=== PATIENT | female | born 1985 | race Caucasian/White ===

== ENCOUNTER 2021-08-15 15:35 | Observation (INO) ==
[2021-08-15] MEDS ORDERED: *HR* HYDROmorphone (PF) 1 MG/ML SYRINGE IVP PRN (18:21)
[2021-08-15] MEDS ORDERED: Ringers Solution, Lactated 1,000 ML IVC SCH (19:15)
[2021-08-15] MEDS ORDERED: Bupivacaine/EPI 1:200k 0.25% 50 ML VIAL ONE (19:18)
[2021-08-15] MEDS ORDERED: Ondansetron 4 MG/2 ML VIAL IVP PRN ×2 (19:26→19:49)
[2021-08-15] MEDS ORDERED: *HR* Propofol 200 MG/20 ML VIAL IVP ONE (19:38)
[2021-08-15] MEDS ORDERED: *HR* Rocuronium Bromide 50 MG/5 ML VIAL ONE (19:39)
[2021-08-15] MEDS ORDERED: Ondansetron 4 MG/2 ML VIAL ONE (19:39)
[2021-08-15] MEDS ORDERED: Lidocaine -MPF 2% 5 ML VIAL ONE (19:39)
[2021-08-15] MEDS ORDERED: *HR* FentaNYL (PF) 100 MCG/2 ML VIAL ONE (19:44)
[2021-08-15] MEDS ORDERED: *HR* OxyCODONE Immed Rel 5 MG TABLET PO PRN (19:49)
[2021-08-15] MEDS ORDERED: Famotidine 20 MG/2 ML VIAL IVP ONE (19:49)
[2021-08-15] MEDS ORDERED: *HR* HYDROmorphone PF 0.5 MG/0.5 ML SYRINGE IVP PRN (19:49)
[2021-08-15] MEDS ORDERED: Ketorolac 30 MG/ML VIAL IVP PRN (19:49)
[2021-08-15] MEDS ORDERED: Albuterol 2.5 MG/3 ML NEBULIZER IH PRN (19:49)
[2021-08-15] MEDS ORDERED: *HR* Labetalol 20 MG/4 ML SYRINGE IVP PRN (19:49)
[2021-08-15] MEDS ORDERED: Scopolamine Patch 1.5 MG PATCH.TD72 TD ONE (19:49)
[2021-08-15] MEDS ORDERED: Promethazine 6.25 MG in Water for inj. (sterile) 20 ML IVPB PRN (19:49)
[2021-08-15 21:00] LABS: Basophils # 0.1 K/mcL (0.0-0.2); Basophils % 0.6 %; Eosinophils # 0.3 K/mcL (0.0-0.6); Eosinophils % 2.2 %; Hematocrit 40.5 % (35.3-44.9); Hemoglobin 13.2 g/dL (11.5-15.4); Immature Granulocytes % 0.4 % (0-4); Lymphocytes # 1.8 K/mcL (0.6-4.6); Lymphocytes % 14.7 %; Mean Corpuscular HGB Conc 32.6 g/dL (31.6-35.5); Mean Corpuscular Hemoglobin 27.8 pg (28.0-33.3); Mean Corpuscular Volume 85.3 fL (83.0-100.0); Mean Platelet Volume 9.3 fL (9.4-12.4); Monocytes # 0.8 K/mcL (0.0-1.3); Monocytes % 6.8 %; Neutrophils # 9.3 K/mcL (1.6-8.9); Platelet Count 320 K/mcL (140-400); Red Blood Count 4.75 M/mcL (3.82-4.97); Red Cell Distribution Width 12.7 % (11.5-14.5); Segmented Neutrophils % 75.3 %; White Blood Count 12.3 K/mcL (4.3-11.1)
[2021-08-15] MEDS ORDERED: Famotidine 20 MG/2 ML VIAL ONE (21:04)
[2021-08-15 21:13] LABS: Influenza A PCR Negative (Negative); Influenza B PCR Negative (Negative); Resp. Syncytial Virus PCR Negative (Negative); SARS-CoV-2 by PCR (In House) Negative (Negative)
[2021-08-15 22:17] LABS: BUN/Creatinine Ratio 8 (6-26); Blood Urea Nitrogen 7 mg/dL (6-20); Calcium 8.5 mg/dL (8.6-10.3); Carbon Dioxide 25 mEq/L (23-29); Chloride 102 mEq/L (98-107); Glucose 77 mg/dL (70-105); Osmolality,Calculated 277 (280-300); Potassium 3.5 mEq/L (3.5-5.1); Sodium 135 mEq/L (136-145); eGFR For African Americans > 60 (> 60); eGFR For Non-African Americans > 60 (> 60)
[2021-08-15] MEDS ORDERED: *HR* Midazolam HCl 2 MG/2 ML VIAL ONE (23:04)
[2021-08-15] MEDS ORDERED: *HR* OxyCODONE Immed Rel 5 MG TABLET PO ONE (23:10)
[2021-08-16] MEDS ORDERED: *HR* HYDROMORPHONE 2 MG/ML VIAL ONE (00:53)
[2021-08-16] MEDS ORDERED: *HR* Rocuronium Bromide 50 MG/5 ML VIAL ONE (01:05)
[2021-08-16] MEDS ORDERED: Sugammadex Sodium 200 MG/2 ML VIAL IV ONE (01:20)
[2021-08-16] MEDS ORDERED: CeFAZolin 2,000 MG/120 ML BAG IVPB ONE (02:00)
[2021-08-16] MEDS ORDERED: ceFAZolin 2,000 MG in Water for inj. (sterile) 20 ML IVPB ONE (02:00)
[2021-08-16] MEDS ORDERED: *HR* FentaNYL (PF) 100 MCG/2 ML VIAL ONE (02:05)
[2021-08-16] MEDS ORDERED: Acetaminophen IV 1,000 MG/100 ML BAG IVPB ONE (02:33)
[2021-08-16] MEDS ORDERED: Ondansetron 4 MG/2 ML VIAL IVP PRN (03:03)
[2021-08-16] MEDS ORDERED: 0.9 % Sodium Chloride 1,000 ML IVC SCH (03:03)
[2021-08-16] MEDS ORDERED: Sennosides 8.6 MG TABLET PO PRN (03:03)
[2021-08-16] MEDS ORDERED: Naloxone 0.4 MG/ML INJ IVP PRN (03:03)
[2021-08-16] MEDS: *HR* OxyCODONE/APAP 5/325 TABLET PO PRN ×2 (04:18→07:50)
[2021-08-16 07:40] VITALS: PULSE 96; O2SAT 97
[2021-08-16 07:50] VITALS: BP 110/65; TEMP 97.8
[2021-08-16] MEDS ORDERED: ARIPiprazole 10 MG TABLET PO SCH (09:00)
[2021-08-16] MEDS ORDERED: traZODone 50 MG TABLET PO SCH (21:00)
== END 2021-08-16 07:55 | disposition home or self-care (01) ==
LOC: 1NENUPED
PROVIDERS: ADMIT Obstetrics & Gynecology; ATTEND Obstetrics & Gynecology